=== PATIENT | male | born 1935 | race Caucasian/White ===

== ENCOUNTER 2018-07-16 11:32 | Outpatient (CLI) | payer MEDICARE ==
[2018-07-16 13:21] LABS: CREATININE 1.13 mg/dL (0.7-1.3)
[2018-07-16] MEDS ORDERED: OMNIPAQUE 350 MG/ML, 150 ML BOTTLE ONE (14:29)
== END 2018-07-16 23:59 | disposition home or self-care (01) ==
LOC: CFH 11:32
PROVIDERS: ATTEND Physician Assistant
DX: N40.0 Benign prostatic hyperplasia without lower urinary tract symptoms (principal); K76.0 Fatty (change of) liver, not elsewhere classified; R91.8 Other nonspecific abnormal finding of lung field; K59.00 Constipation, unspecified; I70.0 Atherosclerosis of aorta; Z87.448 Personal history of other diseases of urinary system
CPT/HCPCS: 36415; 74178; 82565; 84520; Q9967